=== PATIENT | female | born 1960 ===

== ENCOUNTER 2025-03-11 07:04 | Day surgery (SDC) | payer MEDICARE, OTHER ==
[2025-03-11] MEDS ORDERED: PROPOFOL 200 MG/20 ML BOTTLE ONE (09:45)
[2025-03-11 11:30] VITALS: TEMP 97.5
== END 2025-03-11 11:35 | disposition home or self-care (01) ==
LOC: DS 07:04
PROVIDERS: ATTEND Surgery
DX: D64.9 Anemia, unspecified (principal); K92.1 Melena; R10.13 Epigastric pain; R63.4 Abnormal weight loss; K44.9 Diaphragmatic hernia without obstruction or gangrene; K57.30 Diverticulosis of large intestine without perforation or abscess without bleeding; K58.9 Irritable bowel syndrome, unspecified; K64.4 Residual hemorrhoidal skin tags; K29.50 Unspecified chronic gastritis without bleeding; K63.89 Other specified diseases of intestine; I70.0 Atherosclerosis of aorta; I10 Essential (primary) hypertension; E78.5 Hyperlipidemia, unspecified; J45.909 Unspecified asthma, uncomplicated; E03.9 Hypothyroidism, unspecified; M19.90 Unspecified osteoarthritis, unspecified site; Z90.49 Acquired absence of other specified parts of digestive tract; Z98.890 Other specified postprocedural states; Z79.899 Other long term (current) drug therapy
CPT/HCPCS: 43239; 45380; 71045; 88305; 88312; J7120; A4663; J3490